=== PATIENT | male | born 1990 | race Caucasian/White ===

== ENCOUNTER 2017-12-20 04:51 | Emergency (ER) | payer OTHER ==
[~2017-12-20] VITALS: Ht 175.3 cm; Wt 72.7 kg
[2017-12-20 04:55] VITALS: Ht 175.3 cm; Wt 72.7 kg
[2017-12-20] MEDS ORDERED: CLEOCIN HCL300 MG PO (06:00)
[2017-12-20] MEDS ORDERED: ULTRAM50 MG PO (06:00)
[2017-12-20 06:12] VITALS: BP 139/76
== END 2017-12-20 06:13 | disposition home or self-care (01) ==
LOC: D.ER 04:51
DX: K08.89 Other specified disorders of teeth and supporting structures (principal); F17.200 Nicotine dependence, unspecified, uncomplicated

== ENCOUNTER 2018-09-10 16:09 | Emergency (ER) | payer SELFPAY ==
[~2018-09-10] VITALS: Ht 175.3 cm; Wt 72.7 kg
[~2018-09-10 16:09] MED LIST: CLEOCIN HCL300 MG PO; ULTRAM50 MG PO
[2018-09-10 16:13] VITALS: Ht 175.3 cm; Wt 72.7 kg
[2018-09-10 16:44] LABS: BASOPHILS 0.1 % (0-2); EOSINOPHILS 0.7 % (0-7); HEMATOCRIT 48.5 % (42.0-54.0); HEMOGLOBIN 16.4 g/dL (13.5-17.5); IMMATURE GRANULOCYTES 0.1 % (0-5); LYMPHOCYTES 6.5 % (15-50); MCH 30.3 pg (26.0-34.0); MCHC 33.8 g/dL (31.0-37.0); MCV 89.6 fL (80.0-100.0); MEAN PLATELET VOLUME 9.6 fL (7.4-10.4); MONOCYTES 3.8 % (2-11); NEUTROPHILS 88.8 % (40-80); PLATELET COUNT 242 10x3/uL (130-400); RBC 5.41 10x6/uL (4.20-6.10); RDW 12.9 % (11.5-14.5); WBC 6.9 10x3/uL (4.8-10.8)
[2018-09-10 16:58] LABS: ALBUMIN 3.8 g/dL (3.4-5.0); ALKALINE PHOSPHATASE 76 U/L (46-116); ALT (SGPT) 26 U/L (10-68); BILIRUBIN - TOTAL 0.72 mg/dL (0.2-1.3); CALC OSMOLALITY 279 mosm/kg (275-300); CALCIUM 8.8 mg/dL (8.5-10.1); CHLORIDE - SERUM 102 mmol/L (98-107); GLUCOSE 100 mg/dL (74-106); POTASSIUM - SERUM 4.4 mmol/L (3.5-5.1); PROTEIN - SERUM 7.6 g/dL (6.4-8.2); SODIUM 139 mmol/L (136-145); UREA NITROGEN 18 mg/dL (7-18); eGFR NON AFRICAN AMERICAN > 90 mL/min (90-120)
[2018-09-10 17:10] LABS: CKMB 0.1 U/L (0.0-3.6); CREATINE KINASE 67 UL (21-232); MAGNESIUM - SERUM 2.1 mg/dL (1.8-2.4)
[2018-09-10 17:17] LABS: TROPONIN-I < 0.017 ng/mL (0.000-0.060)
[2018-09-10 17:30] LABS: APTT 29.5 SECONDS (22.8-39.4); INR 1.07 (0.85-1.17); PROTIME 13.4 SECONDS (11.6-15.0)
[2018-09-10] MEDS ORDERED: ULTRAM50 MG PO (17:46)
[2018-09-10 18:07] VITALS: BP 132/78
== END 2018-09-10 18:07 | disposition home or self-care (01) ==
LOC: D.ER 16:09
PROVIDERS: Family Medicine
DX: K08.89 Other specified disorders of teeth and supporting structures (principal); S02.5XXA Fracture of tooth (traumatic), initial encounter for closed fracture; X58.XXXA Exposure to other specified factors, initial encounter; Y93.89 Activity, other specified; Y92.89 Other specified places as the place of occurrence of the external cause; R07.81 Pleurodynia